=== PATIENT | female | born 1950 | race Caucasian/White ===

== ENCOUNTER 2017-04-23 10:09 | Outpatient (CLI) | payer MEDICARE, BC ==
--- NOTE | 2017-04-23 13:06 | CT ---
EXAM: LOW DOSE LUNG SCAN CT: HISTORY: Fifteen years of smoking. The patient quit smoking 8 years ago. The patient has shortness of breat h. COMPARISON: None. TECHNIQUE: Noncontrast low-resolution chest CT is performed, following institutional protocol. Reformatted elizabeth ges are submitted for interpretation. FINDINGS: Lung RADS category 1: Negative. No evidence of malignancy. No findings or minor findings that are suspicious for lung cancer. Potential significant incidentals (Lung RADS category S): None. Pulmonary incidentals: There is a small amount of scarring in the middle lobe. A small bleb is not ed in both lower lobes. Other incidentals: Marcellus almita is identified. There is scoliotic curvature of the spine. 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 Lung RADS category 1: Negative. No evidence of primary lung cancer. 2. Lung RADS category S: Negative. No new or unknown potentially significant incidental findings requiring urgent additional evaluation. 3. Other incidental findings as above. RECOMMENDATION: Continued routine annual lung screening CT approximately 1 year from this study. POS: [facility]
== END 2017-04-23 10:10 | disposition home or self-care (01) ==
LOC: CT 10:09
PROVIDERS: ATTEND Family Medicine
DX: Z87.891 Personal history of nicotine dependence (principal); R06.09 Other forms of dyspnea
CPT/HCPCS: G0297

== ENCOUNTER 2017-11-26 10:08 | Outpatient (CLI) | payer MEDICARE, BC | END 2017-11-26 10:09 | disposition home or self-care (01) | LOC: BICMAMMO 10:08 | PROVIDERS: ATTEND Family Medicine | DX: Z12.31 Encounter for screening mammogram for malignant neoplasm of breast (principal) | CPT/HCPCS: 77063; 77067 ==

== ENCOUNTER 2018-05-17 09:41 | Outpatient (CLI) | payer MEDICARE, BC ==
[2018-05-17 11:03] LABS: #Eosinphils 0.1 thou/uL (0.0-0.7); #Lymphocytes 1.3 thou/uL (1.20-3.40); #Monocytes 0.6 thou/uL (0.11-0.59); #Neutrophils 5.5 thou/uL (1.40-6.50); %Basophils 0.3 % (0.0-1.0); %Eosinophils 1.7 % (0.0-10.0); %Lymphocytes 17.6 % (21.0-51.0); %Monocytes 7.8 % (0.0-10.0); %Neutrophils 72.6 % (42.0-75.0); Mean Corpuscular HGB CONC 33.9 g/dL (32.0-36.0); Mean Corpuscular Hemoglobin 29.6 pg (27.0-31.0); Mean Corpuscular Volume 87.3 fL (78.0-98.0); Mean Platelet Volume 6.3 fL (7.4-10.4); Platelet Count 235 thou/uL (130-400); RBC Distribution Width 12.5 % (11.5-14.5); Red Blood Cell (RBC) Count 4.75 mill/uL (4.20-5.40); White Blood Cell (WBC) Count 7.5 thou/uL (4.8-10.8)
== END 2018-05-17 09:42 | disposition home or self-care (01) ==
LOC: LABBT 09:41
PROVIDERS: ATTEND Orthopaedic Surgery
DX: Z01.812 Encounter for preprocedural laboratory examination (principal); G56.01 Carpal tunnel syndrome, right upper limb
CPT/HCPCS: 85025

== ENCOUNTER 2018-06-06 06:42 | Day surgery (SDC) | payer MEDICARE, BC ==
[2018-05-17 10:03] VITALS: BMI 26.7
[2018-06-06] MEDS ORDERED: CEFAZOLIN 2 GM/50 ML BAG ONE (09:43)
[2018-06-06] MEDS ORDERED: Lidocaine 1% w/Epinephrine 1:100K 30 ML VIAL ONE (10:24)
[2018-06-06] MEDS ORDERED: Midazolam HCl 2 mg/2 ml Vial ONE (10:44)
--- NOTE | 2018-06-06 15:20 | OP ---
DATE OF PROCEDURE: 06/06/2018 PREOPERATIVE DIAGNOSIS: Right carpal tunnel. POSTOPERATIVE DIAGNOSIS: Right carpal tunnel. PROCEDURE PERFORMED: Right carpal tunnel release, open. PROFESSIONAL HEALTHCARE REPRESENTATIVE: None. ANESTHESIOLOGIST: Dr. Kunz. ANESTHESIA: The patient received a TIVA with 10 mL of lidocaine, 1% with epinephrine. ESTIMATED BLOOD LOSS: 10 mL. TOURNIQUET TIME: 3 minutes at 250 mmHg. ANTIBIOTICS: Ancef 2 g. COMPLICATIONS: None. INDICATIONS FOR PROCEDURE: Ms. Kaur is a 67-year-old female with 1 year of right hand symptoms with positive for carpal tunnel studies. The patient had decreased range of motion and strength, continued pain despite surgical intervention. The patient desired to have pain relief. I discussed with her the risks and benefits of a right open carpal tunnel release to include pain, scar, bleeding, infection, damage to vital structures, decreased range of motion and strength. The patient had risks and benefits for a right open carpal tunnel release. The patient understood those risks and benefits and elected to proceed. DESCRIPTION OF PROCEDURE: Time-out was performed designating the patient's right upper extremity as the operative site, based on site, consent, and markings. After time-out, the patient's right upper extremity was prepped and draped in the sterile fashion in line of incision with lidocaine about 3 mL and made an incision down proximal Freeman's cardinal line in line over the fourth ray down through skin , through fat, the palmar fascia came down through the pronator and the palmaris brevis. We then completely released the nerve proximally and distally. We then washed. I let the tourniquet down after 3 minutes. We then washed, tourniquet down and controlled bleeding. We closed with 3-0 nylon and injected total of 10 mL of lidocaine with epinephrine. The patient has soft tissue dressing. The patient had a bruise from the patient's placement of her drape and at the site of the tourniquet. We then completed this procedure. The patient will follow up within 10 to 14 days to look her fingers. Job ID: [id number] [id number]
[2018-06-06] MEDS ORDERED: Lidocaine 1% PF 5 ML VIAL ONE (22:29)
[2018-06-06] MEDS ORDERED: PROPOFOL 200 MG/20 ML VIAL ONE (22:29)
== END 2018-06-06 12:06 | disposition home or self-care (01) ==
LOC: SDC 06:42
PROVIDERS: ATTEND Orthopaedic Surgery
PROC: 01N50ZZ Release Median Nerve, Open Approach (ICD-10-PCS; principal; 2018-06-06)
DX: G56.01 Carpal tunnel syndrome, right upper limb (principal); I10 Essential (primary) hypertension; Z87.891 Personal history of nicotine dependence; Z79.899 Other long term (current) drug therapy
CPT/HCPCS: J2001; J2250; J2704

== ENCOUNTER 2022-06-05 12:16 | Outpatient (CLI) | payer MEDICARE, BC | END 2022-06-05 12:17 | disposition home or self-care (01) | LOC: ULT 12:16 | PROVIDERS: ATTEND Family Medicine | DX: R01.1 Cardiac murmur, unspecified (principal); I08.2 Rheumatic disorders of both aortic and tricuspid valves | CPT/HCPCS: 93306 ==